=== PATIENT | female | born 1955 | race Caucasian/White ===

== ENCOUNTER 2017-03-02 15:45 | Emergency (ER) | payer OTHER ==
[~2017-03-02] VITALS: Ht 162.6 cm; Wt 54.4 kg
[2017-03-02 16:49] LABS: Basophils # (auto) 0 uL; Basophils % (auto) 0.5 % (0.0-2.0); Eosinophils # (auto) 0.1 uL; Hematocrit 46.1 % (36.0-46.0); Hemoglobin 15.3 g/dL (12.2-16.2); Lymphocytes # (auto) 2.6 uL; Lymphocytes % (auto) 30.4 % (10.0-50.0); Mean Corpuscular Hemoglobin 31.4 pg (28.0-32.0); Mean Corpuscular Hgb Conc. 33.3 g/dL (32.0-36.0); Mean Corpuscular Volume 94.3 fL (80.0-100.0); Monocytes # (auto) 0.6 uL; Monocytes % (auto) 6.7 % (0.0-12.0); Neutrophils # (auto) 5.2 uL; Neutrophils % (auto) 61.4 % (37.0-80.0); Platelet Count (auto) 315 10^3/uL (140-450); Red Cell Distribution Width 14.4 % (11.6-16.0); White Blood Cell 8.4 10^3/uL (4.4-10.8)
[2017-03-02 17:16] LABS: Albumin 4.3 g/dL (3.4-5.0); Alkaline Phosphatase 112 U/L (45-117); Anion Gap 10 (5-15); Aspartate Aminotransferase 19 U/L (15-37); BUN/Creatinine Ratio 30.8; Bilirubin, Total 0.9 mg/dL (0.2-1.0); Blood Urea Nitrogen 20 mg/dL (7-18); Calcium 9.1 mg/dL (8.5-10.1); Carbon Dioxide 27 mmol/L (21-32); Chloride 104 mmol/L (98-107); GFR African American 120 mL/min; GFR Non-African American 99 mL/min; Glucose 91 mg/dL (74-106); Potassium 4.3 mmol/L (3.5-5.1); Sodium 141 mmol/L (136-145); Total Protein 7.7 g/dL (6.4-8.2)
[2017-03-02 23:06] VITALS: BP 198/116
[2017-03-03 01:40] LABS: Urine RBC None Seen /hpf (0 - 4)
[2017-03-03 01:50] LABS: Urine Bilirubin Negative (Negative); Urine Blood Negative /uL (Negative); Urine Color Yellow (Yellow); Urine Glucose Normal (Normal); Urine Ketone Negative (Negative); Urine Nitrite Negative (Negative); Urine Squamous Epithelial Cell FEW /hpf (<5); Urine Urobilinogen Normal (Negative)
== END 2017-03-03 01:11 | disposition home or self-care (01) ==
LOC: ER 16:09
DX: S20.219A Contusion of unspecified front wall of thorax, initial encounter (principal); F17.210 Nicotine dependence, cigarettes, uncomplicated; Z88.8 Allergy status to other drugs, medicaments and biological substances; Z91.018 Allergy to other foods; X58.XXXA Exposure to other specified factors, initial encounter; Y93.89 Activity, other specified; Y99.8 Other external cause status; Y92.89 Other specified places as the place of occurrence of the external cause
CPT/HCPCS: 36415; 71020; 71101; 80053; 81001; 84484; 85025; 93005; 94761

== ENCOUNTER 2021-02-25 11:54 | Emergency (ER) | payer OTHER ==
[~2021-02-25] VITALS: Ht 162.6 cm; Wt 56.7 kg
[2021-02-25 12:35] VITALS: BP 107/83
[2021-02-25] MEDS ORDERED: LIDOCAINE 1% HCL (LOCAL ANESTH.) INJ 20ML MDV ONE (14:04)
[2021-02-25] MEDS ORDERED: LIDOCAINE 1% HCL (LOCAL ANESTH.) INJ 20ML MDV XX ONE (14:15)
[2021-02-25] MEDS ORDERED: TETANUS-DIPTH-ACEL PERTUSSIS 0.5ML SYR Tdap IM ONE (14:45)
== END 2021-02-25 14:41 | disposition home or self-care (01) ==
LOC: ER 11:54
DX: S61.213A Laceration without foreign body of left middle finger without damage to nail, initial encounter (principal); E78.5 Hyperlipidemia, unspecified; I10 Essential (primary) hypertension; F17.210 Nicotine dependence, cigarettes, uncomplicated; Z91.018 Allergy to other foods; Z88.6 Allergy status to analgesic agent; W26.0XXA Contact with knife, initial encounter; Y93.89 Activity, other specified; Y92.89 Other specified places as the place of occurrence of the external cause; Y99.8 Other external cause status
CPT/HCPCS: 12001; 90471; 90715; 99283; J2001

== ENCOUNTER 2022-03-20 11:46 | Inpatient (IN) | payer OTHER ==
[~2022-03-20] VITALS: Ht 160 cm; Wt 66.4 kg
[2022-03-20] MEDS ORDERED: LORazepam 2MG/ML-1ML VIAL IV ONE (12:30)
[2022-03-20] MEDS ORDERED: LORazepam 2MG/ML-1ML VIAL ONE (12:31)
[2022-03-20 13:34] LABS: Basophils # (auto) 0.1 10 ^3/uL (0-0.2); Eosinophils # (auto) 0 10 ^3/uL (0-0.8); Eosinophils % (auto) 0.1 % (0.0-7.0); Monocytes # (auto) 0.5 10 ^3/uL (0-1.3)
[2022-03-20 13:35] LABS: Basophils % (auto) 0.5 % (0.0-2.0); Hematocrit 37.2 % (36.0-46.0); Hemoglobin 12.4 g/dL (12.2-16.2); Lymphocytes # (auto) 0.7 10 ^3/uL (0.4-5.4); Lymphocytes % (auto) 7.3 % (10.0-50.0); Mean Corpuscular Hemoglobin 26.1 pg (28.0-32.0); Mean Corpuscular Hgb Conc. 33.3 g/dL (32.0-36.0); Mean Corpuscular Volume 78.3 fL (80.0-100.0); Monocytes % (auto) 4.7 % (0.0-12.0); Neutrophils # (auto) 8.7 10 ^3/uL (1.6-8.6); Neutrophils % (auto) 87.4 % (37.0-80.0); Nucleated Red Blood Cells % 0.1 %; Red Blood Cells 4.75 10^6/uL (4.0-5.20); Red Cell Distribution Width 16.1 % (11.8-14.3)
[2022-03-20 13:54] LABS: Alanine Aminotransferase 10 U/L (13-56); Albumin 3.2 g/dL (3.4-5.0); Anion Gap 11 (5-15); Aspartate Aminotransferase 15 U/L (15-37); BUN/Creatinine Ratio 20.8; Blood Alcohol < 3.0 mg/dL (0-5); Blood Urea Nitrogen 10 mg/dL (7-18); Calcium 9.2 mg/dL (8.5-10.1); Carbon Dioxide 27 mmol/L (21-32); Chloride 105 mmol/L (98-107); GFR African American 167 mL/min; GFR Non-African American 138 mL/min; Glucose 126 mg/dL (74-106); Magnesium 2.2 mg/dL (1.6-2.6); Potassium 3.1 mmol/L (3.5-5.1); Sodium 143 mmol/L (136-145)
[2022-03-20 13:56] LABS: Alkaline Phosphatase 143 U/L (45-117); Bilirubin, Total 0.5 mg/dL (0.2-1.0); Total Protein 7.4 g/dL (6.4-8.2)
[2022-03-20 14:40] LABS: Urine WBC None Seen /hpf (0 - 5)
[2022-03-20 14:48] LABS: Urine Amorphous Crystal FEW /hpf (None Seen); Urine Bacteria NONE SEEN /hpf (None Seen); Urine Blood Negative /uL (Negative); Urine Budding Yeast FEW /hpf (None Seen); Urine Mucus FEW (None Seen); Urine Specific Gravity 1.011 (1.001-1.035)
[2022-03-20 14:59] LABS: Alcohol, Urine < 3.0 mg/dL (0-10); Amphetamine Screen, Urine NEGATIVE (NEGATIVE); Barbiturate Scree,Urine NEGATIVE (NEGATIVE); Benzodiazephine Screen, Urine NEGATIVE (NEGATIVE); Cannabinoid Screen, Urine POSITIVE (NEGATIVE); Cocaine Screen, Urine NEGATIVE (NEGATIVE); Opiate Scree,Urine NEGATIVE (NEGATIVE); Phencyclidine Screen, Urine NEGATIVE (NEGATIVE)
[2022-03-20] MEDS ORDERED: SODIUM CHLORIDE 0.9% 1,000 ML IV ONE (17:00)
[2022-03-20] MEDS ORDERED: MORPHINE SULFATE INJ 2 MG/ml SYRG IV PRN (17:00)
[2022-03-20] MEDS ORDERED: NITROGLYCERIN 0.4 MG SL TAB SL PRN (17:00)
[2022-03-20 20:32] VITALS: BP 162/90
[2022-03-20 22:00] VITALS: BP 121/83
[2022-03-21 05:00] VITALS: BP 121/91
[2022-03-21 09:00] VITALS: BP 109/77
[2022-03-21 13:00] VITALS: BP 149/60
[2022-03-21] MEDS ORDERED: IOHEXOL 350 MG/ML 100ML IJ ONE (15:37)
[2022-03-21] MEDS ORDERED: D5W/SOD CHL 0.45% 1,000 ML IV ONE (15:45)
[2022-03-21] MEDS ORDERED: DEXTROSE (50%) 50ML SYRG IV PRN (15:45)
[2022-03-21] MEDS ORDERED: InsuLIN REG 1unit/0.01ml Soln (100units/ml) SC SCH (16:00)
[2022-03-21] MEDS ORDERED: ACCU-CHEK COMFORT CURVE STRIP VI SCH (16:00)
[2022-03-21 16:05] LABS: Eosinophils # (auto) 0 10 ^3/uL (0-0.8); Monocytes # (auto) 1.1 10 ^3/uL (0-1.3); Neutrophils # (auto) 9.9 10 ^3/uL (1.6-8.6); White Blood Cell 12.7 10^3/uL (4.4-10.8)
[2022-03-21 16:07] LABS: Basophils # (auto) 0.1 10 ^3/uL (0-0.2); Basophils % (auto) 0.6 % (0.0-2.0); Eosinophils % (auto) 0.2 % (0.0-7.0); Hematocrit 39.1 % (36.0-46.0); Hemoglobin 12.5 g/dL (12.2-16.2); Lymphocytes # (auto) 1.6 10 ^3/uL (0.4-5.4); Lymphocytes % (auto) 12.4 % (10.0-50.0); Mean Corpuscular Volume 78.1 fL (80.0-100.0); Monocytes % (auto) 8.5 % (0.0-12.0); Neutrophils % (auto) 78.3 % (37.0-80.0); Red Cell Distribution Width 16.3 % (11.8-14.3)
[2022-03-21 16:27] LABS: Calcium 9.2 mg/dL (8.5-10.1)
[2022-03-21 16:30] LABS: BUN/Creatinine Ratio 30.6; Bilirubin, Total 0.7 mg/dL (0.2-1.0); Total Protein 7.4 g/dL (6.4-8.2)
[2022-03-21 16:40] LABS: Potassium 2.8 mmol/L (3.5-5.1)
[2022-03-21 17:00] VITALS: BP 158/90
[2022-03-21] MEDS ORDERED: hydrALAZINE HCL 20 MG/ML VL IV PRN (17:30)
[2022-03-21] MEDS: POTASSIUM CHL 20MEQ/100ML 100 ML IV SCH ×2 (18:06→19:32)
[2022-03-21] MEDS: FLUCONAZOLE 200MG/100ML 100 ML IV SCH (18:16)
[2022-03-21] MEDS: ACYCLOVIR SOD 50MG/ML 500 MG in D5W 5% 100 ML IV SCH (19:32)
[2022-03-21] MEDS ORDERED: FLUCONAZOLE 200MG/100ML 100 ML IV SCH (21:00)
[2022-03-21] MEDS: ATORVASTATIN 20 MG TAB PO SCH (22:00)
[2022-03-21] MEDS ORDERED: CEFTRIAXONE SODIUM 2 GM in D5W 5% 50 ML IV SCH (22:00)
[2022-03-21] MEDS ORDERED: ACYCLOVIR SOD 50MG/ML 500 MG in D5W 5% 100 ML IV SCH (22:00)
[2022-03-21] MEDS: CEFTRIAXONE SODIUM 2 GM in D5W 5% 50 ML IV SCH (22:55)
[2022-03-22] MEDS: ACYCLOVIR SOD 50MG/ML 500 MG in D5W 5% 100 ML IV SCH ×3 (03:27→19:20)
[2022-03-22] MEDS: MORPHINE SULFATE INJ 2 MG/ml SYRG IV PRN ×5 (03:41→20:58)
[2022-03-22 05:00] VITALS: BP 112/68
[2022-03-22 09:00] VITALS: BP 92/62
[2022-03-22] MEDS: CEFTRIAXONE SODIUM 2 GM in D5W 5% 50 ML IV SCH ×2 (09:08→20:56)
[2022-03-22] MEDS ORDERED: ASPirin 81 mg TAB PO SCH (10:00)
[2022-03-22 13:00] VITALS: BP 106/77
[2022-03-22] MEDS: SOD CHL 0.45% 1,000 ML IV SCH (15:35)
[2022-03-22] MEDS: KETOROLAC TROMETH 30 MG/ML 1ML VIAL IV PRN (15:45)
[2022-03-22 17:00] VITALS: BP 112/88
[2022-03-22] MEDS: FLUCONAZOLE 200MG/100ML 100 ML IV SCH (17:43)
[2022-03-22 18:48] LABS: Albumin 2.8 g/dL (3.4-5.0); Calcium 8.9 mg/dL (8.5-10.1)
[2022-03-22 18:51] LABS: BUN/Creatinine Ratio 21.2; Bilirubin, Total 0.4 mg/dL (0.2-1.0); Total Protein 6.7 g/dL (6.4-8.2)
[2022-03-22 19:01] LABS: Potassium 2.8 mmol/L (3.5-5.1)
[2022-03-22] MEDS ORDERED: POTASSIUM CHL 20 Meq TABLET PO ONE (19:30)
[2022-03-22] MEDS ORDERED: SODIUM CHLORIDE 0.9% 1,000 ML IV ONE (19:30)
[2022-03-22] MEDS: ATORVASTATIN 20 MG TAB PO SCH (20:57)
[2022-03-22 22:00] VITALS: BP 135/96
[2022-03-23] MEDS: SOD CHL 0.45% 1,000 ML IV SCH ×3 (00:20→20:58)
[2022-03-23 01:16] LABS: Albumin 2.7 g/dL (3.4-5.0); BUN/Creatinine Ratio 14.8; Calcium 8.5 mg/dL (8.5-10.1)
[2022-03-23 01:18] LABS: Bilirubin, Total 0.4 mg/dL (0.2-1.0); Total Protein 6.7 g/dL (6.4-8.2)
[2022-03-23 01:23] LABS: Potassium 2.9 mmol/L (3.5-5.1)
[2022-03-23] MEDS: POTASSIUM CHL 20MEQ/100ML 100 ML IV SCH ×3 (01:48→08:34)
[2022-03-23] MEDS: ACYCLOVIR SOD 50MG/ML 500 MG in D5W 5% 100 ML IV SCH ×3 (04:24→19:44)
[2022-03-23] MEDS: MORPHINE SULFATE INJ 2 MG/ml SYRG IV PRN ×6 (04:25→23:08)
[2022-03-23 05:00] VITALS: BP 118/65
[2022-03-23 05:02] LABS: Basophils # (auto) 0.1 10 ^3/uL (0-0.2); Eosinophils # (auto) 0.1 10 ^3/uL (0-0.8)
[2022-03-23 05:05] LABS: Basophils % (auto) 0.8 % (0.0-2.0); Eosinophils % (auto) 0.8 % (0.0-7.0); Hematocrit 33.4 % (36.0-46.0); Hemoglobin 11.1 g/dL (12.2-16.2); Lymphocytes % (auto) 9.8 % (10.0-50.0); Mean Corpuscular Hgb Conc. 33.2 g/dL (32.0-36.0); Mean Corpuscular Volume 78.3 fL (80.0-100.0); Monocytes % (auto) 10.3 % (0.0-12.0); Neutrophils # (auto) 7.7 10 ^3/uL (1.6-8.6); Neutrophils % (auto) 78.3 % (37.0-80.0); Red Blood Cells 4.27 10^6/uL (4.0-5.20); White Blood Cell 9.9 10^3/uL (4.4-10.8)
[2022-03-23 05:23] LABS: Albumin 2.6 g/dL (3.4-5.0); BUN/Creatinine Ratio 15.3; Calcium 8.7 mg/dL (8.5-10.1); Potassium 3.3 mmol/L (3.5-5.1)
[2022-03-23 05:25] LABS: Bilirubin, Total 0.6 mg/dL (0.2-1.0); Total Protein 6.6 g/dL (6.4-8.2)
[2022-03-23] MEDS: CEFTRIAXONE SODIUM 2 GM in D5W 5% 50 ML IV SCH ×2 (08:31→20:58)
[2022-03-23] MEDS: KETOROLAC TROMETH 30 MG/ML 1ML VIAL IV PRN (08:32)
[2022-03-23] MEDS ORDERED: POTASSIUM CHL 20 Meq TABLET PO ONE (09:00)
[2022-03-23 09:19] VITALS: BP 146/95
[2022-03-23 10:03] LABS: INR 1.04 (0.9-1.15); Partial Thromboplastin Time 27.2 sec (23.6-33.0)
[2022-03-23 14:11] VITALS: BP 122/88
[2022-03-23] MEDS ORDERED: ATOR20TA50 PO (14:59)
[2022-03-23] MEDS ORDERED: ASPI1CHW15 PO (14:59)
[2022-03-23] MEDS ORDERED: LISI20TA28 PO (14:59)
[2022-03-23 16:43] VITALS: BP 138/87
[2022-03-23] MEDS: FLUCONAZOLE 200MG/100ML 100 ML IV SCH (18:23)
[2022-03-23 22:00] VITALS: BP 113/68
[2022-03-23] MEDS: ATORVASTATIN 20 MG TAB PO SCH (22:03)
[2022-03-24] MEDS: MORPHINE SULFATE INJ 2 MG/ml SYRG IV PRN ×3 (02:43→19:40)
[2022-03-24] MEDS: ACYCLOVIR SOD 50MG/ML 500 MG in D5W 5% 100 ML IV SCH (03:34)
[2022-03-24 05:00] VITALS: BP 106/78
[2022-03-24] MEDS: SOD CHL 0.45% 1,000 ML IV SCH ×3 (06:45→21:42)
[2022-03-24 08:00] VITALS: BP 131/90
[2022-03-24 08:06] LABS: RPR Non Reactive (Non Reactive)
[2022-03-24] MEDS: KETOROLAC TROMETH 30 MG/ML 1ML VIAL IV PRN ×3 (09:02→22:48)
[2022-03-24] MEDS: CEFTRIAXONE SODIUM 2 GM in D5W 5% 50 ML IV SCH (09:02)
[2022-03-24] MEDS: LISINOPRIL 10 MG TAB PO SCH (10:00)
[2022-03-24] MEDS ORDERED: ADENOSINE 54 MG in GIVE UN-DILUTED 0 ML IV STA (11:36)
[2022-03-24 11:39] VITALS: BP 111/63
[2022-03-24 12:00] VITALS: BP 135/83
[2022-03-24 13:21] LABS: BUN/Creatinine Ratio 18.1; Potassium 3.4 mmol/L (3.5-5.1)
[2022-03-24 13:22] LABS: Calcium 9.2 mg/dL (8.5-10.1)
[2022-03-24 16:00] VITALS: BP 143/86
[2022-03-24] MEDS: ATORVASTATIN 20 MG TAB PO SCH (21:05)
[2022-03-24 22:00] VITALS: BP 136/91
[2022-03-25] MEDS: MORPHINE SULFATE INJ 2 MG/ml SYRG IV PRN ×2 (02:34→08:55)
[2022-03-25 04:47] VITALS: BP 164/95
[2022-03-25 09:00] VITALS: BP 125/71
[2022-03-25 09:25] VITALS: BP 125/71
[2022-03-25] MEDS: LISINOPRIL 10 MG TAB PO SCH (09:32)
[2022-03-25] MEDS ORDERED: POTASSIUM CHL 20 Meq TABLET PO ONE (10:00)
[2022-03-25] MEDS ORDERED: HYDR-4902 PO (11:52)
[2022-03-25] MEDS: SOD CHL 0.45% 1,000 ML IV SCH (12:45)
== END 2022-03-25 14:05 | disposition home or self-care (01) | DRG 77 ==
LOC: EDBD 11:46 → ER 11:46 → TELE 16:55 → UNDOADMOB 16:55 → OBSVTOIN 16:55 → INTOOBSV 16:55 → TELE 20:10 → TELE-CENTR 20:10 → UNDODISOB 03-25 14:05 → UNDODISIN 03-25 14:05
PROVIDERS: ADMIT Hospitalist; ATTEND Hospitalist
DX: I67.4 Hypertensive encephalopathy (principal); I21.A1 Myocardial infarction type 2; S52.514A Nondisplaced fracture of right radial styloid process, initial encounter for closed fracture; E11.52 Type 2 diabetes mellitus with diabetic peripheral angiopathy with gangrene; E78.5 Hyperlipidemia, unspecified; E87.6 Hypokalemia; F17.210 Nicotine dependence, cigarettes, uncomplicated; I10 Essential (primary) hypertension; L89.619 Pressure ulcer of right heel, unspecified stage; L89.629 Pressure ulcer of left heel, unspecified stage; F12.10 Cannabis abuse, uncomplicated; D72.829 Elevated white blood cell count, unspecified; W18.39XA Other fall on same level, initial encounter; N28.9 Disorder of kidney and ureter, unspecified; Z20.822 Contact with and (suspected) exposure to COVID-19; M25.552 Pain in left hip; M25.551 Pain in right hip; Z88.8 Allergy status to other drugs, medicaments and biological substances; Z91.018 Allergy to other foods; Y93.89 Activity, other specified; Y92.89 Other specified places as the place of occurrence of the external cause; Y99.8 Other external cause status; Z79.84 Long term (current) use of oral hypoglycemic drugs
CPT/HCPCS: 36415; 70450; 70496; 70498; 70551; 71045; 72125; 73030; 73110; 73502; 73700; 78452; 80048; 80053; 80307; 80320; 81001; 82140; 82550; 82962; 83605; 83735; 84439; 84443; 84484; 85025; 85610; 85730; 86592; 92610; 93017; 93306; 93886; 95819; 96361; 96374; 97163; G0378; J0153; J0696; J1450; J1885; J3480; J7060

== ENCOUNTER 2024-02-07 17:07 | Emergency (ER) | payer BC, OTHER ==
[~2024-02-07] VITALS: Ht 162.6 cm; Wt 54.5 kg
[~2024-02-07 17:07] MED LIST: ASPI-736 PO; ATOR20TA50 PO; HYDR-4902 PO; LISI20TA56 PO
[2024-02-07] MEDS: cefTRIAXone SOD 1,000 MG VL IM ONE (19:32)
[2024-02-07] MEDS: ONDANSETRON ODT 4 MG TAB PO ONE (19:32)
[2024-02-07] MEDS: HYDROcodone-ACET 5/325MG TAB PO ONE (19:44)
[2024-02-07 20:53] VITALS: BP 93/63; PULSE 67; RESP 17; TEMP 98.1; O2SAT 98
[2024-02-07] MEDS ORDERED: AMOX875T4 PO (21:22)
[2024-02-07] MEDS ORDERED: ACE3T PO (21:22)
== END 2024-02-07 22:04 | disposition home or self-care (01) ==
LOC: ER 17:07 → EDUNIT# 17:07 → EDBD 17:07 → ER 22:03
DX: S82.102A Unspecified fracture of upper end of left tibia, initial encounter for closed fracture (principal); S41.152A Open bite of left upper arm, initial encounter; Z88.6 Allergy status to analgesic agent; Z79.899 Other long term (current) drug therapy; W54.0XXA Bitten by dog, initial encounter; Y93.89 Activity, other specified; Y92.89 Other specified places as the place of occurrence of the external cause; Y99.8 Other external cause status
CPT/HCPCS: 29505; 73060; 73562; 82962; 99284; J0696; Q0162

== ENCOUNTER 2024-09-22 09:52 | Emergency (ER) | payer OTHER ==
[~2024-09-22] VITALS: Ht 170.2 cm; Wt 73.0 kg
[~2024-09-22 09:52] MED LIST changes: +ACE3T PO; +AMOX875T4 PO
[2024-09-22 09:55] VITALS: RESP 12; O2SAT 0
--- NOTE | 2024-09-22 11:11 | ED.PDOC ---
CPR-HPI HPI Comments 68 year old female TOMEKA presents to the ED with chief complaint of CPR. EMS reports patient was found down by family after an unknown amount of time at home when they called paramedics. EMS relays that the patient was asystole on scene, but became ROSC after performing CPR, giving 2 doses of Epinephrine, and being intubated on route. EMS states patient had recent heart and femoral artery surgery. EMS notes patient's blood glucose on scene was 114. EMS unable to provide any further history at this time. Chief Complaint: CPR Time Seen by MD: 09:55 Primary Care Provider: VANESSA Reviewed Notes: Nurses Notes, Financial Services Representative Notes, Medications, Allergies Allergies: Coded Allergies: [place] (Verified Allergy, Unknown, 03/02/17) Ibuprofen (Verified Allergy, Unknown, 03/02/17) Home Meds Active Scripts Acetaminophen W/ Codeine (Tylenol W/Cod #3) 1 Tab Tb, 1 TAB PO QIDP, #10 TAB 0 Refills Prov:LANA MORELOS 02/07/24 Amoxicillin & Pot Clavulanate (Amoxicillin/Potassium Cla) 875 Mg Tab, 1 TAB PO BID for 7 Days, #14 TAB 0 Refills Prov:LANA MORELOS 02/07/24 Hydrocodone-Acetaminophen (Hydrocodone Bitartrate/AC 5-325 mg) 1 Tab Tab, 1 TAB PO Q6HP PRN, #20 TAB Prov:MARTY ALLEN MD 03/25/22 Lisinopril (Lisinopril) 20 Mg Tab, 1 TAB PO DAILY, #30 TAB 5 Refills Prov:MARTY ALLEN MD 03/23/22 Atorvastatin Calcium (ATORVASTATIN CALCIUM) 20 Mg Tab, 40 MG PO HS, #30 TAB Prov:MARTY ALLEN MD 03/23/22 Aspirin (Aspirin Low Strength) 81 Mg Chw, 81 MG PO DAILY, #30 TAB.CHEW Prov:MARTY ALLEN MD 03/23/22 Information Source: Emergency Med Personnel Mode of Arrival: EMS Timing: Hours Onset: Unknown Available Hx: Prior Cardiac Disease Inital rhythm: Asystole Treatment: CPR, Intubation, IV, Epinephrine Response: Sustained return of pulse Associated signs and symptoms: None Past Medical History PAST MEDICAL HISTORY: High Lipids, HTN Surgical History: Denies all surgeries SENIOR SOFTWARE ENGINEER History: No Pertinent SENIOR SOFTWARE ENGINEER History Family History Family History: Unknown Social History Smoker: Non-Smoker Alcohol: Denies ETOH Use Drugs: Denies Drug Use Lives In: Home Unable to Obtain due to: Medical Urgency, Intubated All Other Systems: Reviewed and Negative Physical Exam Exam Comments Patient unresponsive, with ET tube in place. Patient has well-healing scar to the abdomen from recent surgery. Patient wearing a diaper and has defecated. Blood streaked foul-smelling stool liquidy. General Appearance: Cachectic, Other (Unresponsive) HEENT: Other (ET tube in place) Neck: Normal Inspection Respiratory: Other (Apneic, clear lung sounds and equal with ET tube in place. Condensation to ET tube) Cardiovascular: Other (A systolic) Breast Exam: Deferred Gastrointestinal: Other (Large healing scar to the abdomen) Genitalia: Deferred Pelvic: Deferred Rectal: Blood streaked stool, Other (Foul-smelling stool liquidy in the diaper) Extremities: Other (IO in place to the left tibia. No bilateral leg swelling) Neurologic: Other (Unresponsive) Cerebellar Function: NOT DONE Reflexes: NOT DONE Skin: Pallor Lymphatic: NOT DONE Was a procedure done? Was a procedure done?: No Differential Dx CPR Differential Diagnosis: Cardiopulmonary arrest, Myocardial Infarction, Pulmonary Embolus, Respiratory Failure Other Differential Diagnosis Sepsis, ischemic bowel X-Ray, Labs, Meds, VS Vital Signs Date Time Temp Pulse Resp B/P (MAP) Pulse Ox O2 Delivery O2 Flow Rate FiO2 09/22/24 12:20 97.0 10 09/22/24 11:22 0 Ambu-Bag 09/22/24 09:55 12 0 Mechanical Ventilator+ 100 100 68-year-old female presents here status post cardiac arrest. Patient was found unresponsive by family. Patient was brought in by EMS. They stated patient was given epinephrine x2 and field and Jackelin was obtained. ET tube was placed and patient was brought in by EMS. Patient was immediately evaluated by myself. Prior to patient's arrival to the emergency room, my team and I had prepared for the patient with code blue cart and intubation supplies at bedside. Upon patient's arrival patient did have good condensation and bilateral lung sounds her ET tube. Appropriate placement was determined by myself. Additionally patient was found to not have pulses. CPR was immediately started. Patient was given a total of 3 rounds of epinephrine, 2 amps of bicarb during CPR. Every pulse check demonstrated asystole. Patient had a temperature of 97, blood sugar of 70. Ultimately after patient continued to remain in asystole despite continuous, high-quality CPR, time of was called at 10:06 a.m. pupils bilaterally fixed and dilated. No family was at bedside. However soon after family did arrive. I spoke to daughter extensively. She states she saw her mother 2 days ago and she did not appear well to her and had a decreased appetite. She states that her brother started CPR on her that morning when she was found unresponsive. All questions have been answered for her daughter. Time of 1ST Reevaluation: 10:06 Reevaluation 1ST: N/A (Patient .) Patient Education/Counseling: Pt Unresponsive Family Education/Counseling: No Family Present Departure 1 Departure Time of Disposition: 10:06 Impression: Primary Impression: Cardiac arrest Disposition: 20 Condition: Poor Critical Care Note Critical Care Time?: No Heart Score Heart Score: Heart Score Response (Comments) Value History N/A 0 EKG N/A 0 Age N/A 0 Risk Factors N/A 0 Troponin N/A 0 Total 0 Stability Stability form required: No I personally scribed for MARYAN QUINTERO MD ([email or web address]) on 09/22/24 at 11:11. Electronically submitted by Deandre Wade ([email or web address]). MARYAN QUINTERO MD Sep 22, 2024 11:11
--- NOTE | 2024-09-22 11:22 | RESUS ---
CODE BROKOE ASSESSSMENT History of Events History of Events: Securred code brooke arrived at 0952 intubated with ROSC after 2 rounds of epi per EMS prior to arrival. Lost pulses at 0955 in ER. Initial Information Date: Sep 22, 2024 Time: 09:55 Location of Arrest: ER CPR started by whom: EMS Pre-Hospital Care: ACLS Type of arrest: Cardiac, Respiratory, Unwitnessed (FOUND DOWN BY E) Spontaneous Respirations: No Pulse Present: No Monitoring: ECG, Pulse Oximetry Crash Cart Opened and Supplies: Yes Airway Ventilation Breathing at Onset: Assisted Oxygen Delivery Method: Ambu-Bag Time of first Assisted Ventila: 09:52 Artificial Ventilation: Bag/Endo tube Intubation Size: 6.0 cuffed Intubated by: EMS Tube secured at: 22 Confirmation: Auscultation, Exhaled CO2 Circulation Circulation #1: Time: 09:55 Pulse Rate (adult): 0 Blood Pressure Systolic: 0 Blood Pressure Diastolic: 0 Temperature (Fahrenheit): 97.1 (TEMPORAL) Circulation Comment: [place] Circulation #2: Time: 09:57 Pulse Rate (adult): 0 Blood Pressure Systolic: 0 Blood Pressure Diastolic: 0 Circulation Comment: [place] Circulation #3: Time: 09:59 Pulse Rate (adult): 0 Blood Pressure Systolic: 0 Blood Pressure Diastolic: 0 Circulation Comment: [place] Circulation #4: Time: 10:01 Pulse Rate (adult): 0 Blood Pressure Systolic: 0 Blood Pressure Diastolic: 0 Circulation Comment: PEA Circulation #5: Time: 10:03 Pulse Rate (adult): 0 Blood Pressure Systolic: 0 Blood Pressure Diastolic: 0 Circulation Comment: [place] Circulation #6: Time: 10:06 Pulse Rate (adult): 0 Blood Pressure Systolic: 0 Blood Pressure Diastolic: 0 Circulation Comment: [place], TOD Defibrillation Defbrillation : Time Defibrillator Applied: 09:53 Procedure - Intraosseous Site of Intraosseous: Tibia summer-medial Intraosseous inserted by: EMS Medications & Response Medications and Responses #1: Medication Time: 09:55 ADULT Medications Given ADULT: Epinephrine 1 mg Route of Administration: IO Medications and Responses #2: Medication Time: 09:56 ADULT Medications Given ADULT: Sodium Bacarbinate 50 meq Route of Administration: IO Medications and Responses #3: Medication Time: 09:59 ADULT Medications Given ADULT: Epinephrine 1 mg Route of Administration: IO Medications and Responses #4: Medication Time: 10:01 ADULT Medications Given ADULT: Sodium Bacarbinate 50 meq Route of Administration: IO Medications and Responses #5: Medication Time: 10:03 ADULT Medications Given ADULT: Epinephrine 1 mg Route of Administration: IO Nurses Notes Jhonny Coma Scale Eye Opening: None (1) Jhonny Coma Scale Verbal: None (1) Jhonny Coma Scale Motor: None (1) Pupil Reaction: Non Reactive Bedside Blood Glucose: 70 EKG Rhythm: Asystole Time Code Ended Time Code Ended: 10:06 Post Arrest Status: Outcome of code: Unsuccessful Patient pronounced by: DR QUINTERO Time patient pronounced: 10:06 Code Team Present: ASIF NIELSEN RN HOUSE SUPERVISOR, VALERY Fisher RN ER CHARGE, DAYNE Michaels RN, CINDY Padilla RN, SURYA RT, MAT RT, RICARDO García DUMBWAITER OPERATOR, ERICKA DUMBWAITER OPERATOR, [facility] STUDENT NURSES. Asif Weston Sep 22, 2024 11:22
[2024-09-22 12:20] VITALS: RESP 10
== END 2024-09-22 10:06 ==
LOC: ER 09:52 → EDBD 09:52 → ER 10:06
DX: I46.9 Cardiac arrest, cause unspecified (principal); I10 Essential (primary) hypertension; Z79.82 Long term (current) use of aspirin; Z79.899 Other long term (current) drug therapy; Z88.6 Allergy status to analgesic agent
CPT/HCPCS: 92950